=== PATIENT | female | born 1945 | race Caucasian/White ===

== ENCOUNTER 2024-03-22 06:00 | Inpatient (IN) | payer MEDICARE, OTHER ==
[~2024-03-22] VITALS: Ht 162.6 cm; Wt 53.5 kg
[2024-03-22] MEDS ORDERED: FENTANYL PF 250MCG/5ML AMPUL ONE (07:07)
[2024-03-22] MEDS ORDERED: ANESTHESIA TRAY IN PYXIS 1 EA TRAY MC ONE (07:07)
[2024-03-22] MEDS ORDERED: ROCURONIUM BROMIDE 50 MG/5 ML ONE (07:08)
[2024-03-22] MEDS ORDERED: dexaMETHasone SOD PHOSPHATE 2 ML ONE (07:27)
[2024-03-22] MEDS ORDERED: OXYMETAZOLINE HCL NASAL SPRAY 30 ML BOTTLE NS ONE (07:27)
[2024-03-22] MEDS ORDERED: LABETALOL HCL IV 100MG VIAL ONE (07:27)
[2024-03-22] MEDS ORDERED: LIDOCAINE 2%-EPI 1:100,000 30 ML VIAL ONE (07:27)
[2024-03-22] MEDS ORDERED: VANCOMYCIN 1 GM VIAL ONE (07:27)
[2024-03-22 07:29] LABS: BASOPHILS % (AUTO) 0.6 % (0.0-2.0); EOSINOPHILS # (AUTO) 0.1 K/uL (0.0-0.7); EOSINOPHILS % (AUTO) 1.4 % (0.0-6.0); HEMATOCRIT 38 % (33-45); LYMPHOCYTES # (AUTO) 1.2 K/uL (0.8-4.8); LYMPHOCYTES % (AUTO) 19.5 % (20.0-44.0); MEAN CORPUSCULAR HEMOGLOBIN 30 PG (26.0-33.0); MEAN CORPUSCULAR HGB CONC 34 g/dl (31.0-36.0); MEAN CORPUSCULAR VOLUME 88 fL (82-100); MONOCYTES # (AUTO) 0.6 K/uL (0.1-1.30); MONOCYTES % (AUTO) 9.1 % (2.0-12.0); NEUTROPHILS # (AUTO) 4.3 K/uL (1.8-8.9); NEUTROPHILS % (AUTO) 69.4 % (43.0-81.0); PLATELET COUNT (AUTO) 175 K/uL (150-450); RED BLOOD CELL COUNT(AUTO) 4.35 MIL/uL (4.0-5.2); RED CELL DISTRIBUTION WIDTH 13.6 % (11.5-15.0); WHITE BLOOD COUNT (AUTO) 6.2 K/uL (4.3-11.0)
[2024-03-22] MEDS ORDERED: SEVOFLURANE 250 ML BOTTLE IH ONE (08:57)
[2024-03-22] MEDS ORDERED: OMEP40CA21 PO (11:00)
[2024-03-22] MEDS ORDERED: ACETAMINOPHEN 325 MG TABLET PO PRN (11:00)
[2024-03-22] MEDS ORDERED: RAME8TAB24 PO (11:00)
[2024-03-22] MEDS ORDERED: SPIR25TA6 PO (11:00)
[2024-03-22] MEDS ORDERED: ONDANSETRON HCL/PF 4 MG/2 ML VIAL IV PRN (11:00)
[2024-03-22] MEDS ORDERED: ROSU20TA2 PO (11:00)
[2024-03-22] MEDS ORDERED: ESCI10TA PO (11:00)
[2024-03-22] MEDS: HYDROMORPHONE 1 MG/1 ML DISP.SYRIN IV PRN (11:10)
[2024-03-22] MEDS: IV NS 0.9% 1,000 ML BAG IV PRN (11:51)
[2024-03-22] MEDS: ATORVASTATIN 40 MG TABLET PO SCH (14:37)
[2024-03-22] MEDS ORDERED: HOME MED MISCELLANEOUS XX SCH (15:00)
[2024-03-22 16:00] VITALS: BP 123/59; TEMP 98.2; O2SAT 92
[2024-03-22] MEDS: SPIRONOLACTONE 25 MG TABLET PO SCH (17:16)
[2024-03-22] MEDS: CLOTRIMAZOLE 1% 15 GM TUBE TP SCH (17:17)
[2024-03-22] MEDS: VANCOMYCIN 1 GM in IV D5W 250ml IV SCH (17:45)
[2024-03-22 20:00] VITALS: BP 122/63; TEMP 97.7; O2SAT 95
[2024-03-22] MEDS: ESCITALOPRAM OXALATE (10 MG) 10 MG TABLET PO SCH (22:13)
[2024-03-23 08:00] VITALS: BP 124/56; TEMP 97.7; O2SAT 95
== END 2024-03-23 11:00 | disposition home or self-care (01) | DRG 141 ==
LOC: DS 06:00 → MED 09:56
PROVIDERS: ADMIT Nurse Practitioner Acute Care; ATTEND Nurse Practitioner Acute Care
PROC: 0NBR0ZX Excision of Maxilla, Open Approach, Diagnostic (ICD-10-PCS; principal; 2024-03-22)
PROC: 0NSR04Z Reposition Maxilla with Internal Fixation Device, Open Approach (ICD-10-PCS; 2024-03-22)
PROC: 0N5T0ZZ Destruction of Right Mandible, Open Approach (ICD-10-PCS; 2024-03-22)
PROC: 0N5V0ZZ Destruction of Left Mandible, Open Approach (ICD-10-PCS; 2024-03-22)
PROC: 0NSV04Z Reposition Left Mandible with Internal Fixation Device, Open Approach (ICD-10-PCS; 2024-03-22)
PROC: 0NST04Z Reposition Right Mandible with Internal Fixation Device, Open Approach (ICD-10-PCS; 2024-03-22)
PROC: 0NUV07Z Supplement Left Mandible with Autologous Tissue Substitute, Open Approach (ICD-10-PCS; 2024-03-22)
PROC: 0NUR07Z Supplement Maxilla with Autologous Tissue Substitute, Open Approach (ICD-10-PCS; 2024-03-22)
PROC: 0NUT07Z Supplement Right Mandible with Autologous Tissue Substitute, Open Approach (ICD-10-PCS; 2024-03-22)
DX: S02.40CA Maxillary fracture, right side, initial encounter for closed fracture (principal); M86.69 Other chronic osteomyelitis, multiple sites; S02.609A Fracture of mandible, unspecified, initial encounter for closed fracture; Z85.820 Personal history of malignant melanoma of skin; Z87.891 Personal history of nicotine dependence; I10 Essential (primary) hypertension; Z98.890 Other specified postprocedural states; E78.5 Hyperlipidemia, unspecified; F32.A Depression, unspecified; G47.00 Insomnia, unspecified; K21.9 Gastro-esophageal reflux disease without esophagitis; Z79.899 Other long term (current) drug therapy; X58.XXXD Exposure to other specified factors, subsequent encounter; X58.XXXA Exposure to other specified factors, initial encounter; Y92.9 Unspecified place or not applicable; D16.5 Benign neoplasm of lower jaw bone; M85.60 Other cyst of bone, unspecified site; M27.2 Inflammatory conditions of jaws; J32.0 Chronic maxillary sinusitis
CPT/HCPCS: 36415; 85025-TC; A4223; A4338; C1713; G0378; J0360; J0461; J0690; J1100; J1171; J2704; J3010; J3370; J3490; J7030; J7060

== ENCOUNTER 2024-08-02 07:44 | Inpatient (IN) | payer MEDICARE, OTHER ==
[~2024-08-02] VITALS: Ht 160 cm; Wt 53.2 kg
[~2024-08-02 07:44] MED LIST: ESCI10TA PO; OMEP40CA21 PO; RAME8TAB24 PO; ROSU20TA2 PO; SPIR25TA6 PO
[2024-08-02] MEDS ORDERED: FAMOTIDINE/PF INJ 20 MG/2 ML VIAL IV ONE (09:38)
[2024-08-02] MEDS ORDERED: FAMOTIDINE/PF INJ 20 MG/2 ML VIAL IV SCH (10:00)
[2024-08-02] MEDS ORDERED: METOCLOPRAMIDE HCL 10 MG/2 ML VIAL IV SCH (10:00)
[2024-08-02] MEDS ORDERED: LABETALOL 20 MG/4 ML VIAL ONE (10:30)
[2024-08-02] MEDS ORDERED: MIDAZOLAM HCL 2 MG/2ML VIAL ONE (10:31)
[2024-08-02] MEDS ORDERED: FENTANYL PF 100MCG/2ML AMPUL ONE (10:40)
[2024-08-02] MEDS ORDERED: LIDOCAINE 2% JEL UROJET 10 ML MM ONE (10:40)
[2024-08-02] MEDS ORDERED: ROCURONIUM BROMIDE 50 MG/5 ML ONE (10:41)
[2024-08-02] MEDS ORDERED: OXYMETAZOLINE HCL NASAL SPRAY 30 ML BOTTLE NS ONE (10:41)
[2024-08-02] MEDS ORDERED: Magnesium 1 GM/2 ML VIAL ONE ×2 (10:41→11:14)
[2024-08-02] MEDS ORDERED: LIDOCAINE 2%-EPI 1:100,000 30 ML VIAL ONE (10:46)
[2024-08-02] MEDS ORDERED: dexaMETHasone SOD PHOSPHATE 2 ML ONE (10:47)
[2024-08-02] MEDS ORDERED: VANCOMYCIN 1 GM VIAL ONE (10:47)
[2024-08-02] MEDS ORDERED: BACITRACIN ZINC OINT (15 GM) 15 GM TUBE TP ONE (11:15)
[2024-08-02] MEDS ORDERED: SUGAMMADEX SODIUM 200 MG/2 ML VIAL IV ONE (11:48)
[2024-08-02] MEDS ORDERED: [UNRECOGNIZED DRUG - CODE] PO (13:56)
[2024-08-02] MEDS ORDERED: ACETAMINOPHEN 325 MG TABLET PO PRN (14:30)
[2024-08-02] MEDS ORDERED: HYDROMORPHONE 1 MG/1 ML DISP.SYRIN IV PRN (14:30)
[2024-08-02] MEDS ORDERED: ONDANSETRON HCL/PF 4 MG/2 ML VIAL IV PRN (14:30)
[2024-08-02] MEDS: IV NS 0.9% 1,000 ML IV PRN (14:37)
[2024-08-02 16:00] VITALS: BP 121/54; TEMP 98.2; O2SAT 97
[2024-08-02] MEDS: PANTOPRAZOLE 40 MG TABLET.DR PO SCH (17:41)
[2024-08-02 20:00] VITALS: BP 143/69; TEMP 97.7; O2SAT 97
[2024-08-02] MEDS: ATORVASTATIN 40 MG TABLET PO SCH (21:16)
[2024-08-02] MEDS: CEFAZOLIN 2 GM in IV D5W 100 ML IV SCH (21:16)
[2024-08-02] MEDS ORDERED: PANTOPRAZOLE 40 MG TABLET.DR PO SCH (22:00)
[2024-08-02] MEDS: MENTHOL/CETYLPYRD (CEPACOL) 1 LOZ LOZENGE PO PRN (23:13)
[2024-08-03 08:00] VITALS: BP 161/66; TEMP 98.2; O2SAT 96
[2024-08-03] MEDS: SIMETHICONE 80 MG TAB.CHEW PO PRN (08:40)
[2024-08-03] MEDS: SPIRONOLACTONE 25 MG TABLET PO SCH (08:40)
[2024-08-03] MEDS ORDERED: LANOLIN/MIN OIL/PETROLAT,WHT 3.5 GM TUBE OP ONE (10:49)
== END 2024-08-03 10:50 | disposition home or self-care (01) | DRG 908 ==
LOC: DS 07:44 → MED 13:07
PROC: 0NSV0ZZ Reposition Left Mandible, Open Approach (ICD-10-PCS; principal; 2024-08-02 10:15)
PROC: 0NBT0ZZ Excision of Right Mandible, Open Approach (ICD-10-PCS; principal; 2024-08-02 10:15)
PROC: 0NPW04Z Removal of Internal Fixation Device from Facial Bone, Open Approach (ICD-10-PCS; principal; 2024-08-02 10:15)
PROC: 0N5R0ZZ Destruction of Maxilla, Open Approach (ICD-10-PCS; principal; 2024-08-02 10:15)
PROC: 0N5V0ZZ Destruction of Left Mandible, Open Approach (ICD-10-PCS; principal; 2024-08-02 10:15)
PROC: 0NUV07Z Supplement Left Mandible with Autologous Tissue Substitute, Open Approach (ICD-10-PCS; principal; 2024-08-02 10:15)
DX: T86.831 Bone graft failure (principal); T84.69XA Infection and inflammatory reaction due to internal fixation device of other site, initial encounter; Y83.2 Surgical operation with anastomosis, bypass or graft as the cause of abnormal reaction of the patient, or of later complication, without mention of misadventure at the time of the procedure; Y79.3 Surgical instruments, materials and orthopedic devices (including sutures) associated with adverse incidents; Y92.89 Other specified places as the place of occurrence of the external cause; K12.30 Oral mucositis (ulcerative), unspecified; K09.9 Cyst of oral region, unspecified; D16.4 Benign neoplasm of bones of skull and face; D16.5 Benign neoplasm of lower jaw bone; M89.38 Hypertrophy of bone, other site; E78.5 Hyperlipidemia, unspecified; I10 Essential (primary) hypertension; Z85.820 Personal history of malignant melanoma of skin; Z88.1 Allergy status to other antibiotic agents; Z88.5 Allergy status to narcotic agent
CPT/HCPCS: 71045-TC; 82962-TC; 88305-TC; 88311-TC; A4223; G0378; J0690; J1100; J1308; J1885; J2250; J2405; J2704; J3010; J3370; J3475; J3490; J7030; J7060